=== PATIENT | male | born 1975 | race African-American/Black ===

== ENCOUNTER 2016-11-22 13:45 | Emergency (ER) | payer OTHER ==
[~2016-11-22] VITALS: Ht 188 cm; Wt 169.6 kg
[~2016-11-22 13:45] MED LIST: HYDROCODON-ACE1 EA11 PO; MEDROL4 M1 PO; NORCO 7.5-3251 EACH PO; PROVENTIL HFA6.7 GM INH
[2016-11-22] MEDS ORDERED: TYLENOL325 MG PO (14:38)
[2016-11-22] MEDS ORDERED: LAXATIVE SUPPOS10 MG PR (14:39)
[2016-11-22] MEDS ORDERED: LO-DOSE ASPIRIN81 MG PO (14:39)
[2016-11-22] MEDS ORDERED: CARDIZEM CD120 MG PO (14:40)
[2016-11-22] MEDS ORDERED: MULTIPLE VITAM1 EAC2 PO (14:41)
[2016-11-22] MEDS ORDERED: LOVENOX60 MG SUB-Q (14:42)
[2016-11-22] MEDS ORDERED: FLEET ENEMA133 ML PR (14:43)
[2016-11-22] MEDS ORDERED: MAGNESIUM CITR296 ML PO (14:44)
[2016-11-22] MEDS ORDERED: TOPROL XL100 MG PO (14:46)
[2016-11-22] MEDS ORDERED: MILK OF MA400 MG/5 M PO (14:47)
[2016-11-22] MEDS ORDERED: OXYCODONE HCL5 MG PO (14:48)
[2016-11-22] MEDS ORDERED: GAVILAX17 GM PO (14:52)
[2016-11-22] MEDS ORDERED: SENNA-S TABLET1 EACH PO (14:53)
[2016-11-22] MEDS ORDERED: ZOFRAN4 MG PO (14:54)
[2016-11-22] MEDS ORDERED: KEFLEX500 MG PO (16:16)
== END 2016-11-22 17:05 ==
LOC: ED 13:45
DX: T84.629A Infection and inflammatory reaction due to internal fixation device of unspecified bone of leg, initial encounter (principal); J45.909 Unspecified asthma, uncomplicated; I10 Essential (primary) hypertension; I48.91 Unspecified atrial fibrillation; Z79.82 Long term (current) use of aspirin; Z79.899 Other long term (current) drug therapy; Z79.891 Long term (current) use of opiate analgesic
CPT/HCPCS: 73560; 80053; 85025; 99283

== ENCOUNTER 2020-05-10 01:41 | Emergency (ER) | payer OTHER ==
[~2020-05-10] VITALS: Ht 188 cm; Wt 181.4 kg
[~2020-05-10 01:41] MED LIST changes: +ALBUTEROL2.5 MG/3 M INH; +CARDIZEM CD120 MG PO; +CHLORTHALIDONE50 MG PO; +DILTIAZEM 24HR240 M3 PO; +FLEET ENEMA133 ML PR; +GAVILAX17 GM PO; +KEFLEX500 MG PO; +LAXATIVE SUPPOS10 MG PR; +LO-DOSE ASPIRIN81 MG PO; +LOVENOX60 MG SUB-Q; +MAGNESIUM CITR296 ML PO; +MILK OF MA400 MG/5 M PO; +MULTIPLE VITAM1 EAC2 PO; +NORCO 5-325 TA1 EACH PO; +OXYCODONE HCL5 MG PO; +PREDNISONE20 MG PO; +PROAIR HFA8.5 GM INH; +SENNA-S TABLET1 EACH PO; +TOPROL XL100 MG PO; +TYLENOL325 MG PO; +ZESTRIL40 MG PO; +ZOFRAN4 MG PO
[2020-05-10] MEDS ORDERED: CLINDAMYCIN HC300 MG PO (02:17)
== END 2020-05-10 02:28 | disposition home or self-care (01) ==
LOC: ED 01:41
DX: K04.7 Periapical abscess without sinus (principal); J45.909 Unspecified asthma, uncomplicated; I48.91 Unspecified atrial fibrillation; Z79.899 Other long term (current) drug therapy
CPT/HCPCS: 99282

== ENCOUNTER 2023-03-01 22:02 | Emergency (ER) | payer OTHER ==
[~2023-03-01] VITALS: Ht 188 cm; Wt 181.4 kg
[~2023-03-01 22:02] MED LIST changes: +CLINDAMYCIN HC300 MG PO
[2023-03-01 22:47] LABS: BILIRUBIN, URINE NEGATIVE (negative); BLOOD/HGB, URINE NEGATIVE (Negative); KETONE, URINE NEGATIVE (Negative); LEUK ESTERASE, URINE NEGATIVE (negative); NITRITE, URINE NEGATIVE (negative); PH, URINE 5.5 (5-7)
[2023-03-01 23:16] LABS: BASOPHILS 0.5 % (0-2); EOSINOPHILS 4.6 % (0-6); HEMATOCRIT 43.8 % (35.0-50.0); LYMPHOCYTES 16.7 % (24-44); MCH 28.8 (27-36); MONOCYTES 7.8 % (0-12); NEUTROPHILS 70.4 % (39-80); PLATELET COUNT 224 K/uL (140-440); RBC 4.86 M/ul (4.3-5.7)
[2023-03-01 23:30] LABS: ALBUMIN 3.4 g/dL (3.4-5.0); ALBUMIN/GLOBULIN RATIO 0.89 (1.1-2.4); ANION GAP 10.3 (7-21); BILIRUBIN, TOTAL 0.4 ng/dL (0.2-1.0); BUN/CREATININE RATIO 13.44 (6.0-28.6); CALCIUM 8.1 mg/dL (8.5-10.1); CREATININE, SERUM 1.19 mg/dL (0.70-1.30); POTASSIUM 3.3 mmol/L (3.5-5.1); PROTEIN, TOTAL 7.2 g/dL (6.4-8.2)
[2023-03-02 02:31] VITALS: BP 114/82
== END 2023-03-02 02:30 | disposition home or self-care (01) ==
LOC: ED 22:02
PROVIDERS: Internal Medicine
DX: K42.9 Umbilical hernia without obstruction or gangrene (principal); Z79.899 Other long term (current) drug therapy
CPT/HCPCS: 36415; 74177; 80053; 81003; 85025; 96375; 99284-25; J1885; J7121; Q9967

== ENCOUNTER 2023-04-13 15:00 | Emergency (ER) | payer OTHER ==
[~2023-04-13] VITALS: Ht 188 cm; Wt 216.0 kg
[2023-04-13] MEDS ORDERED: TOBRADEX ST EYE5 ML OPTH (15:46)
[2023-04-13] MEDS ORDERED: NAPHCON-A EYE D15 ML OPTH (15:46)
[2023-04-13 15:56] VITALS: BP 145/96
== END 2023-04-13 15:55 | disposition home or self-care (01) ==
LOC: ED 15:00
DX: H10.9 Unspecified conjunctivitis (principal); H11.421 Conjunctival edema, right eye; J45.909 Unspecified asthma, uncomplicated; Z79.899 Other long term (current) drug therapy
CPT/HCPCS: 99283

== ENCOUNTER 2024-03-08 18:53 | Inpatient (IN) | payer OTHER ==
[~2024-03-08] VITALS: Ht 188 cm; Wt 222.8 kg
[~2024-03-08 18:53] MED LIST changes: +DILTIAZEM 24HR120 MG PO; +FUROSEMIDE40 MG; +K-TAB ER20 MEQ PO; +NAPHCON-A EYE D15 ML OPTH; +OMEPRAZOLE20 MG PO; +POTASSIUM CHLO10 MEQ PO; +TOBRADEX ST EYE5 ML OPTH; +TRAMADOL HCL50 MG
[2024-03-08] MEDS ORDERED: ALBUTEROL SULFATE 0.5% 2.5 MG/0.5 ML VIAL INH ONE (19:15)
[2024-03-08] MEDS ORDERED: ALBUTEROL/IPRATROPIUM 3 ML NEB INH ONE (19:15)
[2024-03-08] MEDS ORDERED: CLOPIDOGREL75 MG PO (19:19)
[2024-03-08] MEDS ORDERED: METOPROLOL SUC200 MG PO (19:20)
[2024-03-08 19:34] LABS: BASOPHILS 0.9 % (0-2); EOSINOPHILS 6.9 % (0-6); HEMATOCRIT 48.3 % (35.0-50.0); HEMOGLOBIN 15.4 g/dL (12.0-18.0); LYMPHOCYTES 20.5 % (24-44); MCH 29.2 (27-36); MCHC 31.9 g/dl (30-36); MCV 91.5 fl (81-99); MONOCYTES 9.4 % (0-12); NEUTROPHILS 62.3 % (39-80); PLATELET COUNT 245 K/uL (140-440); RBC 5.27 M/ul (4.3-5.7)
[2024-03-08 19:45] LABS: ALBUMIN 3.8 g/dL (3.4-5.0); ALBUMIN/GLOBULIN RATIO 0.88 (1.1-2.4); ANION GAP 12.5 (7-21); BILIRUBIN, TOTAL 0.5 ng/dL (0.2-1.0); BUN/CREATININE RATIO 11.11 (6.0-28.6); CALCIUM 8.6 mg/dL (8.5-10.1); CREATININE, SERUM 1.35 mg/dL (0.70-1.30); MAGNESIUM 1.8 mg/dL (1.8-2.4); POTASSIUM 3.5 mmol/L (3.5-5.1); PROTEIN, TOTAL 8.1 g/dL (6.4-8.2)
[2024-03-08] MEDS ORDERED: CALCIUM GLUCONATE 1,000 MG/10 ML VIAL IV ONE (20:00)
[2024-03-08] MEDS ORDERED: dilTIAZem HCL 25 MG/5 ML VIAL IV ONE ×2 (20:00→21:00)
[2024-03-08 20:10] LABS: BASE EXCESS, BLOOD GAS -1.5 mmol/L (-2-2); HCO3, BLOOD GAS 23.5 mmol/L (22-26); O2 SATURATION, BLOOD GAS 95.4 % (95.0-100.0); OXYGEN RECEIVED, BLOOD GAS 4L; PCO2, BLOOD GAS 39.5 mmHg (35-45); PH, BLOOD GAS 7.38 (7.35-7.45); PO2, BLOOD GAS 72 mmHg (80-100); TOTAL CO2, BLOOD GAS 24.7
[2024-03-08] MEDS ORDERED: FUROSEMIDE 100 MG/10 ML VIAL IV ONE (20:15)
[2024-03-08] MEDS ORDERED: NOREPINEPHRINE BITARTRATE 250 ML IV SCH (20:15)
[2024-03-08] MEDS ORDERED: LORazepam 2 MG/ML VIAL IV ONE (20:30)
[2024-03-08] MEDS ORDERED: APIXABAN 5 MG TAB PO ONE (21:00)
[2024-03-08] MEDS ORDERED: MELATONIN 3 MG TAB PO PRN (21:00)
[2024-03-08 21:38] LABS: INFLUENZA B NAA NEGATIVE (NEGATIVE); RESPIRATORY SYNCYTIAL VIR NAA NEGATIVE (NEGATIVE)
[2024-03-08] MEDS ORDERED: ondansetron HCL 4 MG/2 ML VIAL IV PRN (22:00)
[2024-03-08] MEDS ORDERED: ACETAMINOPHEN 325 MG TAB PO PRN (22:00)
[2024-03-08] MEDS ORDERED: ALBUTEROL SULFATE 0.042% 1.25 MG/3 ML VIAL INH PRN (22:30)
[2024-03-08] MEDS ORDERED: MAGNESIUM SULFATE 2 GM/50 ML BAG IV ONE (22:45)
[2024-03-08] MEDS ORDERED: LORazepam 2 MG/ML VIAL IV PRN (22:45)
[2024-03-08 22:48] VITALS: BP 134/90
[2024-03-08 22:50] VITALS: BP 134/90
--- NOTE | 2024-03-08 22:52 | NUR ---
REPORT RECEIVED FROM ED RN RAJIV. PATIENT TO ROOM 127 VIA [facility] [employer]. ASSISTED TO STAND AND PIVOT TO BED. PATIENT IS TACHYPNEAIC AND TACHYCARDIC,RR40, HR 95-100S IN AFIB. PATIENT COMPLAINS OF FEELING DIFFICULTY BREATHING. ATIVAN GIVEN PER ORDER. PATIENT PLACED ON BIPAP PER RT; /, RATE 12, FIO2 21%. ORIENTED TO ROOM, NURSING STAFF AND CALL LIGHT FUNCTIONS.
--- NOTE | 2024-03-08 22:52 | NUR ---
CALLED ON PATIENT ARRIVAL TO CCU DUE TO SEVERE ANXIETY, NEW ORDER FOR ATIVAN PRN AND 2G MG.
[2024-03-08 23:00] VITALS: BP 128/87
[2024-03-08] MEDS ORDERED: ALBUTEROL SULFATE 0.5% 2.5 MG/0.5 ML VIAL INH PRN (23:00)
[2024-03-08] MEDS ORDERED: ALBUTEROL/IPRATROPIUM 3 ML NEB INH PRN (23:00)
[2024-03-08 23:15] VITALS: BP 123/85
[2024-03-08 23:30] VITALS: BP 110/78
[2024-03-08] MEDS ORDERED: hydrOXYzine pamoate 50 MG CAP PO PRN (23:30)
[2024-03-08] MEDS ORDERED: GUAIFENESIN 10 ML UNIT DOSE CUP PO PRN (23:30)
[2024-03-08] MEDS ORDERED: methylPREDNISolone SOD SUCC 125 MG/2 ML VIAL IV SCH (23:30)
[2024-03-08] MEDS ORDERED: dilTIAZem HCL 120 MG CAPCR PO SCH (23:30)
[2024-03-08 23:45] VITALS: BP 122/89
--- NOTE | 2024-03-08 23:46 | NUR ---
PATIENT REPORTS NEED TO VOID. REMINDED PATIENT HE HAS EXTERNAL MALE PUREWICK ON. PATIENT VOIDED 700ML CLEAR LIGHT YELLOW URINE. REMAINS ON BIPAP AT THIS TIME.
--- NOTE | 2024-03-08 23:54 | NUR ---
CARDIZEM PO AND IV SOLUMEDROL GIVEN. PATIENT OFF BIPAP BRIEFLY FOR PO MEDICATION. WOB AND RR INCREASED WHILE OFF BIPAP AND ON 4L NC. RE-INFORCED EDUCATION ON BIPAP AND PT BACK ON, TOLERATING WELL. PATIENT DECLINES CALLING ANY FAMILY TO NOTIFY AT THIS TIME, REPORTS THEY ALL KNOW. CALL LIGHT IN REACH.
[2024-03-09] VITALS (52 sets, daily range): BP systolic 83–169; BP diastolic 41–110
--- NOTE | 2024-03-09 01:31 | NUR ---
PATIENT REQUESTS BREAK FROM MASK. REPORTS HIS MOUTH GETTING DRIED OUT. REMOVED BIPAP TO GIVE PO VISTERIL AND SIPS OF WATER. IV ATIVAN GIVEN PER EMAR FOR ANXIETY. PATIENT ENDORSES USING CPAP AT HOME AND SEEING HIS [facility]UL[facility]OLIGIST [place]ST W[place] WHERE THE DOCTOR TOLD HIM "EVERYTHING LOOKED GOOD". BIPAP REPLACED. PATIENT DENIES OTHER NEEDS OR CONCERNS AT THIS TIME.
[2024-03-09] MEDS ORDERED: METOPROLOL SUCCINATE 100 MG TABCR PO ONE (03:00)
[2024-03-09] MEDS ORDERED: DILTIAZEM HCl/D5W 125 ML IV SCH (03:00)
[2024-03-09 03:13] LABS: PH, VENOUS 7.296 (7.31-7.41)
--- NOTE | 2024-03-09 03:18 | NUR ---
APPROXIMATELY 0230 PATIENT C/O OF CHEST PAIN. EKG ORDERED AND RT NOTIFIED. PATIENT REPORTED IT "TIGHT PRESSURE" IN THE CENTER OF HIS CHEST, NON RADIATING. RT ADMINISTERED BREATHING TREATMENT AND PAIN RESOLVED. LUNG SOUNDS TIGHT AND WHEEZING HEARD THROUGHTOUT. DR. MADISON NOTIFIED. ORDERS RECEIVED FOR DILTIAZEM GTT TO TITRATE, VBG, TROPONIN AND BNP. DILT GTT INITIATED, SEE VS AND TITRATION FLOW SHEET.
--- NOTE | 2024-03-09 03:24 | NUR ---
PATIENT BACK ON BIPAP.
--- NOTE | 2024-03-09 03:37 | NUR ---
PROVIDER REQUESTED TO COME TO BEDSIDE.
--- NOTE | 2024-03-09 03:38 | NUR ---
DR CALVILLO AT BEDSIDE. 03:42 DR. MADISON AT BEDSIDE
[2024-03-09] MEDS ORDERED: propofoL 100 ML IV ONE (03:59)
[2024-03-09] MEDS ORDERED: ETOMIDATE 40 MG/20 ML VIAL IV ONE (04:30)
[2024-03-09] MEDS ORDERED: ROCURONIUM BROMIDE 50 MG/5 ML SYR IV ONE (04:30)
[2024-03-09] MEDS ORDERED: propofoL 100 ML IV SCH (04:30)
--- NOTE | 2024-03-09 04:55 | NUR ---
REVIEWED CT WITH DR. MADISON, ORDER CLARIFIED FOR CTA AND CHANGED TO CORRECT ORDER. ORDER RECEIVED FOR D DIMER. UPDATED ON PATIENT STATUS, HR,BP AND SEDATION REQUIREMENTS AND INSTABILITY TO TRANSPORT TO CT AT THIS TIME. PER DR. MADISON, OK TO DO CT LATER IN THE AM WHEN THE PATIENT IS MORE STABLE. REVIEWED SEDATION AND ORDER RECEIVED FOR VERSED GTT.
--- NOTE | 2024-03-09 05:07 | NUR ---
PATIENT HAS REQUESTED EX- GIRLFRIEND BE CALLED. ATTEMPTED TO REACH AT TIME OF INTUBATION BUT NO ANSWER. THIS ATTEMPT GITA ANSWERED ([phone]). UPDATED ON STATUS AND ANSWERED QUESTIONS. GITA REPORTS PATIENT RECENTLY MOVED IN WITH HER DUE TO HIS HEALTH.
[2024-03-09] MEDS ORDERED: MIDAZOLAM HCL 100 MG in DEXTROSE 5% 80 ML IV SCH (05:15)
[2024-03-09 05:29] LABS: BASOPHILS 0.1 % (0-2); EOSINOPHILS 0.1 % (0-6); MCHC 31.8 g/dl (30-36); MONOCYTES 0.9 % (0-12); NEUTROPHILS 94.9 % (39-80); PLATELET COUNT 246 K/uL (140-440); RBC 5.16 M/ul (4.3-5.7); RDW 15.6 (10.5-15.0)
[2024-03-09 05:55] LABS: ALBUMIN 3.7 g/dL (3.4-5.0); ALBUMIN/GLOBULIN RATIO 0.82 (1.1-2.4); ANION GAP 19.8 (7-21); BILIRUBIN, TOTAL 0.9 ng/dL (0.2-1.0); BUN/CREATININE RATIO 9.65 (6.0-28.6); CALCIUM 8.6 mg/dL (8.5-10.1); CREATININE, SERUM 1.45 mg/dL (0.70-1.30); MAGNESIUM 1.9 mg/dL (1.8-2.4); POTASSIUM 3.8 mmol/L (3.5-5.1); PROTEIN, TOTAL 8.2 g/dL (6.4-8.2)
--- NOTE | 2024-03-09 06:59 | NUR ---
PATIENT'S EX-GIRLFRIEND IN ROOM. UPDATED ON PATIENT.
[2024-03-09] MEDS ORDERED: SODIUM CHLORIDE 0.9% 1,000 ML IV ONE (07:00)
--- NOTE | 2024-03-09 07:30 | NUR ---
ASSUMED CARE FROM EZRA SALAS, IV LINES AND PUMPS CHECKED WITH 2 RNS, R AND L IV ARM SITES WNL. R IJ WNL. GIBBS DRAINING YELLOW URINE, PT SEDATED SAFELY AND COMFORTABLY WITH FRIEND AT BEDSIDE. NS @100. VENT PER [place] RT, PEEP 15, VT 650, FIO2 60%, ORAL CARE DONE BY THIS RN, SIZE 8 TUBE, 24 AT TEETH. ORAL AREA WNL.
[2024-03-09] MEDS ORDERED: ALBUTEROL/IPRATROPIUM 3 ML NEB INH SCH (08:00)
--- NOTE | 2024-03-09 08:00 | NUR ---
0800 03/09/24 COMMENCE BLOCK CHARTING D/T PT REQUIRING INTUBATION: 03:35 DRS. CALVILLO AND LOS AT BEDSIDE TO DISCUSS INTUBATION WITH PATIENT. PATIENT AGREEABLE TO INTUBATION. WISHES TO HAVE HIS EX-GIRLFRIEND NOTIFIED. ATTEMPED TO REACH GITA BUT NO ANSWER. JOHNNY RT IN ROOM ALONG WITH SALES COMMISSIONS ANALYST CHACHO HASSAN, RN AND DANILO RN WELL SUPERINTENDENT STORAGE AREA. PATIENT PREPARED FOR INTUBATION 04:00 ETOMIDATE 40MG IVP; ROCURONIUM 200MG IVP ADMINISTERED. INTUBATED BY DR. CALVILLO; ET TUBE 8.0, 25 CM AT THE LIP; CO2 DETECTION NOTED. 04:[address] CALVILLO; PROPOFOL STARTED 17.6 MCG/KG/MIN; ET TUBE MOVED TO 28 AT THE LIP 04:12 25MG IVP DILTIAZEM GIVEN PER DR. CALVILLO'S ORDER 04:15 HR 127, BP 169/99 (120), RR 22, ETCO2 45, SPO2 94% 04:20 PROPOFOL INCREASED TO 20 MCG/KG/MIN 04:25 ET TUBE MOVED TO 24 AT THE LIP 04:27 PROPOFOL INCREASED TO 25 MCG/KG/MIN; DILTIAZEM GTT AT 15MG/HR 04:30 HR 144, BP 169/87 (111), RR 22, ETCO2 40, SPO2 96% 04:34 PCXR 04:38 25 MG IVP DILTIAZEM PER DR. CALVILLO'S ORDER GIBBS CATHETER PLACED WITH IMMEDIATE RETURN OF CLEAR YELLOW URINE. VENT SETTINGS: FIO2 60%, VT 650, RR 18, PEEP15 05:25 VERSED GTT INITIATED AT 4MG/HR; PROPOFOL AT 35 MCG/KG/MIN PATIENT REMAINS IN AFIB ON TELEMETRY. DILTIAZEM TITRATION CONTINUES WITH LAST TITRATION BY THIS RN AT 07:07 WITH A RATE OF 2MG/HR 07:00 BP 95/52 (65), HR 101, RR 18, ETCO2 31, SPO2 97% PROPOFOL AND VERSED TITRATION CONTINUED DURING THIS TIME WITH FINAL TITRATION BY THIS RN AT 06:18; PROPOFOL AT 40 MCG/KG/MIN, VERSED AT 10 MG/HR. 07:30 SHIFT REPORT GIVEN. SEE VITAL SIGN PRINT OUT IN CHART. END BLOCK CHARTING
[2024-03-09] MEDS ORDERED: levoFLOXacin 500 MG/100 ML BAG IV SCH (09:00)
[2024-03-09] MEDS ORDERED: CEFTRIAXONE/SODIUM CHLORIDE 2 GM/100 ML PIGGYBACK IV SCH (09:00)
[2024-03-09] MEDS ORDERED: ENOXAPARIN SODIUM 40 MG/0.4 ML SYR SUB-Q SCH (09:00)
--- NOTE | 2024-03-09 09:05 | NUR ---
NO CHANGE WITH PT, FAMILY, BROTHER IN ROOM, IN TO DISCUSS PLAN. ORAL CARE AND SUCTION OF STICKY SPUTUM THAT PT COUGHED UP. RT ASSIST.
--- NOTE | 2024-03-09 09:10 | NUR ---
CLARIFIED RASS GOAL WITH DR. MADISON. ORDER RECEIVED FOR RASS GOAL -2. JOSUE NOLAND UPDATED
[2024-03-09] MEDS ORDERED: FUROSEMIDE 20 MG/2 ML VIAL IV ONE (09:15)
[2024-03-09 09:26] LABS: PH, VENOUS 7.334 (7.31-7.41)
--- NOTE | 2024-03-09 09:38 | NUR ---
FAMILY IN ROOM, PRESS HAND IN FOR TEST AT BEDSIDE AND THEN PLAN TO MOVE PT TO CT STRECHER, CT, AND THEN TO BARIATRIC BED.
--- NOTE | 2024-03-09 09:39 | NUR ---
PT NOT RESPONSIVE. TALKED WITH FAMILY IN ROOM. FAMILY EXPRESSED SITUATIONALLY APPROPRIATE RESPONSES, DENIED IMMEDIATE NEEDS. COAL SCREENER PROVIDED SUPPORTIVE PRESENCE, HOSPITALITY, PRAYER. FAMILY EXPRESSED APPRECIATION.
--- NOTE | 2024-03-09 09:57 | NUR ---
DECREASED O2 TO 40%.
[2024-03-09] MEDS ORDERED: Perflutren Lipid Microspheres 2.2 MG/2 ML VIAL IV ONE (10:13)
--- NOTE | 2024-03-09 10:32 | NUR ---
PT MOVED VIA BED TO CT SCAN, HOVER MAT TRANSF. MAX ASSIST TO CT TABLE FOR SCAN. THEN BACK TO NEW BARIATRIC BED. PT TOLLERATED WELL AND RETURNED TO ROOM 127. FAMILY AT SIDE, ORAL CARE DONE, REPOSOITIONED, NEW LINEN, REAGAN CARE AND CALL LIGHT IN REACH. ALL IV SITES AND LINES CHECKED BY 2 RN AND WNL.
--- NOTE | 2024-03-09 11:09 | NUR ---
TRANSPORT TO AND FROM CT WITHOUT INCIDENT.
--- NOTE | 2024-03-09 11:29 | NUR ---
RUST COLORED MUCUS AND SALIVA SUCTIONED FROM PT ORAL AIRWAY AND ET TUBE TO SUCTION CANISTER. 200 ML NOTED DURING TURNING, AND TRANSITION TO CT TABLE AND BACK. GIBBS EMPTIED ALSO FOR 150 ML YELLOW URINE. RESTRAINTS REMOVED AND RETURNED. ROM WITH ARMS AND LEGS.
[2024-03-09] MEDS ORDERED: PHARMACY RENAL DOSE ADJUSTMENT 1 DOSE MISC PO SCH (12:00)
--- NOTE | 2024-03-09 12:30 | NUR ---
Spoke with pts brother. He was able to answer a few questions, but asks I speak with Hortencia. Hortencia is the mother of pts children.
--- NOTE | 2024-03-09 13:21 | NUR ---
UR CLINICAL REVIEW: [facility] FOR ASTHMA [facility] INPT 03/08/24 @ 2158, CHANGED TO CCU STATUS FROM [facility] 03/09/24 @ 0558 ORDER MATCHES REG AUTH PENDING, CLINICALS WILL BE FAXED VIA [facility] TODAY. DC PLAN PENDING, LIKELY HOME WHEN STABLE. 03/11/24
--- NOTE | 2024-03-09 13:36 | NUR ---
removed restraints and repositioned pt to left side, oral care done, and suction.
--- NOTE | 2024-03-09 14:41 | EKG ---
[facility] [address] [place], [place] [address] Signed Atrial fibrillation with rapid ventricular response Nonspecific ST and T wave abnormality Abnormal ECG When compared with ECG of 08-MAR-2024 19:12, (Unconfirmed) Nonspecific T wave abnormality has replaced inverted T waves in Anterior leads Confirmed by Dorcas Madison MD ([id number]) on 03/09/2024 2:41:17 PM Electronically Signed By: DORCAS MADISON DO 03/09/24 1441 PATIENT NAME: ANA JERNIGAN Electrocardiogram DATE OF : 75 PHYSICIAN: DORCAS MADISON DO REPORT #: [id number] REPORT IS CONFIDENTIAL AND NOT TO BE RELEASED WITHOUT AUTHORIZATION
--- NOTE | 2024-03-09 14:41 | EKG ---
[facility] [address] [facility] [address] [facility] [place], [place] [address] Signed Atrial fibrillation with rapid ventricular response Nonspecific ST and T wave abnormality Abnormal ECG No previous ECGs available Confirmed by Dorcas Madison MD ([id number]) on 03/09/2024 2:41:01 PM Electronically Signed By: DORCAS MADISON DO 03/09/24 1441 PATIENT NAME: ANA JERNIGAN Electrocardiogram DATE OF : 75 PHYSICIAN: DORCAS MADISON DO REPORT #: [id number] REPORT IS CONFIDENTIAL AND NOT TO BE RELEASED WITHOUT AUTHORIZATION
--- NOTE | 2024-03-09 15:30 | NUR ---
I was able to reach Hortencia. She works for the [employer] and has been in education. They live in a house with a ramp. Pt does not use DME, he does have CPAP she thinks is from [facility]. He also has a knee brace from a surgery 2 years ago. Pt has a history of resp failure. Pt moved in with Hortencia recently as he needed help. 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 Pt is also in need of a pcp. Hortencia would like [facility] as this is where she and the children go. They had also discussed POA. I will leave an Advance Directive in pts room, a copy of the mobile notary, and gave her infor to get a POA form. Will fu with pt when able to speak. Hortencia denies issues with financial problems. They would like to have susy Lowe as this is who the rest of the family uses. She denies other needs at this time. I called [facility] and they will check with Susy from [facility] if she can establish care with this pt. They will call me tomorrow.
--- NOTE | 2024-03-09 15:45 | NUR ---
ONE TIME ORDER FOR NS COMPLETE - IV SL WNL. FAMILY IN ROOM, GIBBS DRAINING YELLOW URINE.
--- NOTE | 2024-03-09 16:09 | NUR ---
rt at bedside with pt for treatment, family in room. pt appears comfortable.
--- NOTE | 2024-03-09 17:02 | NUR ---
pt hr increasing - 2 rn check increase dilt drip to 4 see medication flow sheet. turned pt to right using turn function on trace bed, pt appears comfortable,
--- NOTE | 2024-03-09 17:05 | NUR ---
call to dr mccarthy with updates on dilt increase, hr 125-128 and bp 128/70. no changes but doctor is aware.
[2024-03-09] MEDS ORDERED: MAGNESIUM SULFATE 2 GM/50 ML BAG IV ONE (18:45)
--- NOTE | 2024-03-09 18:53 | NUR ---
empty walker - 550 ml urine, turned pt using arjo bed - tolerated well, family at bedside, oral care done, pt restraints removed and replaced. hr 120's.
--- NOTE | 2024-03-09 19:45 | NUR ---
HANDOFF REPORT RECEIVED FROM JOSUE NOLAND. PT FAMILY AT BEDSIDE. NO NEEDS AT THIS TIME. PT VITAL SIGNS STABLE.
--- NOTE | 2024-03-09 20:15 | NUR ---
PT ASSESSMENT COMPLETE. PT REMAINS ON PROPOFOL AT 38 MCG/KG/MIN, VERSED AT 10 MG/HR, AND DILTIAZEM AT 6 MG/HR. PT ET TUBE 24CM AT THE LIPS. PT RASS SCORE -2. MEDICAL ARM RESTRAINTS X2 IN PLACE. GIBBS CATH PATENT AND DRAINING. PT LOWER EXTREMITIES NOTED TO HAVE 2+ EDEMA. PT TACHYCARDIC, WITH HR AT 135. BLOOD PRESSURE 124/71. PT APPEARS TO BE COMFORTABLE AT THIS TIME. FAMILY AT BEDSIDE.
[2024-03-09] MEDS ORDERED: METOPROLOL TARTRATE 5 MG/5 ML VIAL IV PRN (20:30)
[2024-03-09] MEDS ORDERED: MORPHINE SULFATE 4 MG/ML VIAL IV PRN (20:30)
--- NOTE | 2024-03-09 20:40 | NUR ---
DR TORRES UPDATED ON PATIENT. NEW ORDERS RECEIVED PER EMAR.
--- NOTE | 2024-03-09 21:36 | NUR ---
PRN MORPHINE GIVEN FOR PATIENT COMFORT PER EMAR. PT REMAINS TACHYCARDIC.
[2024-03-10] VITALS (36 sets, daily range): BP systolic 100–150; BP diastolic 45–96
--- NOTE | 2024-03-10 00:15 | NUR ---
ORAL CARE PROVIDED. PT REPOSITONED IN BED. MEDICAL RESTRAINTS RELEASED, ARMS ELEVEATED WITH PILLOWS. PT REMAINS INTUBATED AND SEDATED. ET TUBE 24CM AT THE GUMS. PROPOFOL AT 38 MCG/KG/MIN, VERSED AT 10 MG/HR, AND DILTIAZEM AT 15 MG/HR. MEDICAL RESTRAINTS REPLACED X2.
--- NOTE | 2024-03-10 00:45 | NUR ---
DR TORRES CALLED AND UPDATED ON PATIENT. PT HR 120-130'S. LAST BLOOD PRESSURE WAS 113/52. PT TEMP OF 101.4. NEW ORDERS RECEIVED FOR STAT BLOOD CULTURES, UA, LACTIC, AND CHEST X-RAY. IV OFIRMEV ORDER RECEIVED PER EMAR.
[2024-03-10] MEDS ORDERED: ACETAMINOPHEN 1,000 MG/100 ML VIAL IV ONE (01:00)
--- NOTE | 2024-03-10 02:04 | NUR ---
urine sample drawn off of walker, sent to lab.
[2024-03-10 02:07] LABS: BILIRUBIN, URINE NEGATIVE (negative); BLOOD/HGB, URINE NEGATIVE (Negative); KETONE, URINE NEGATIVE (Negative); LEUK ESTERASE, URINE NEGATIVE (negative); NITRITE, URINE NEGATIVE (negative)
[2024-03-10] MEDS ORDERED: ALBUTEROL SULFATE 0.083% 3 ML VIAL INH PRN (03:00)
--- NOTE | 2024-03-10 03:37 | NUR ---
START OF SHIFT PATIENT OG TUBE NOTED TO BE ON CONTINOUS HIGH PRESSURE, TURNED TO INTERMITTENT SUCTION. NO NEW DRAINAGE NOTED AT FIRST, BY 0100 IN THE MORNING NOTED 150 ML OF RUST COLORED DRAINAGE. DR TORRES NOTIFIED OF THIS WHILE NOTIFYING OF OTHER TEST RESULTS ORDERED DUE TO FEVER.
[2024-03-10] MEDS ORDERED: PANTOPRAZOLE SODIUM 40 MG/10 ML VIAL IV SCH (04:00)
--- NOTE | 2024-03-10 04:40 | NUR ---
PATIENT LABS DRAWN VIA CENTRAL LINE AND SENT TO LAB.
[2024-03-10 04:47] LABS: BASOPHILS 0.1 % (0-2); HEMATOCRIT 40.9 % (35.0-50.0); HEMOGLOBIN 13.2 g/dL (12.0-18.0); LYMPHOCYTES 14.5 % (24-44); MCHC 32.4 g/dl (30-36); MCV 89.5 fl (81-99); NEUTROPHILS 67.4 % (39-80); PLATELET COUNT 217 K/uL (140-440); RBC 4.57 M/ul (4.3-5.7); RDW 14.7 (10.5-15.0)
[2024-03-10 05:11] LABS: ANION GAP 12.7 (7-21); BUN/CREATININE RATIO 13.75 (6.0-28.6); CALCIUM 8.6 mg/dL (8.5-10.1); CREATININE, SERUM 1.6 mg/dL (0.70-1.30); POTASSIUM 3.7 mmol/L (3.5-5.1); TSH, 3RD GENERATION 0.348 uIU/mL (0.358-3.740)
--- NOTE | 2024-03-10 05:15 | NUR ---
patient provided with oral care and deep suctioned. pt repositioned and appears to be comfortable at this time.
[2024-03-10 05:31] LABS: PROCALCITONIN 0.03 ng/mL (())
--- NOTE | 2024-03-10 06:30 | NUR ---
PATIENT FAMILY MEMBER NARESH PROVIDED WITH UPDATE AND ALL QUESTIONS ANSWERED. PATIENT FAMILY REMAINS AT BEDSIDE.
--- NOTE | 2024-03-10 08:00 | NUR ---
REPORT RECEIVED FROM GAGE SALAS. VERSED DRIP TURNED OFF PER DR TORRES ORDER. PT HAS WRIST RESTRAINTS IN PLACE, PROPOFOL DRIP AT 38 MCG/KG/MIN. PT IS RESTING WITH EYES CLOSED, OCC COUGH NOTED. ETT IN PLACE VENT SETTINGS FIO2 21%, TIDAL VOLUME 700, PEEP 8, RR 18. SPO2 92%. PT IS BREATHING WITH VENT. PIP 34. AXILLARY TEMP IS 99.6. PTS CURRENT RASS -4.
--- NOTE | 2024-03-10 08:08 | NUR ---
RT IN TO SEE PT, START NEB TX, GO OVER PLAN FOR THE DAY, WILL ATTEMPT SAB AT 0900 AND HOPEFULLY EXTUBATE AT SOME POINT TODAY.
--- NOTE | 2024-03-10 08:59 | NUR ---
IN TO CHECK ON PT RASS SCORE, PT STILL DOES NOT OPEN EYES TO VOICE OR PHYICAL STIMULI. PROPOFOL DRIP TURNED DOWN TO 15MCG/KG/HR.
--- NOTE | 2024-03-10 09:10 | NUR ---
VISITED DURING SPIRITUAL CARE ROUNDS. PT NOT RESPONSIVE. FAMILY IN ROOM DENIED NEEDS, KAYLA, STRONG RELATIONAL RESOURCES. QA DEVELOPER PROVIDED SUPPORTIVE PRESENCE, HOSPITALITY, PRAYER. FAMILY EXPRESSED GRATITUDE.
--- NOTE | 2024-03-10 09:16 | NUR ---
PTS BROTHER ALECIA AND SISTER IN LAW IN TO VISIT WITH PT, WOULD LIKE TO BE CALLED PRIOR TO EXTUBATION IN POSSIBLE SO THEY CAN BE SAYING SOME PRAYERS.
--- NOTE | 2024-03-10 10:30 | NUR ---
RT HAS BEEN ATTEMPTING AN AWAKENING/BREATHING TRIAL. ALL SEDATION HAS BEEN TURNED OFF TO ASSESS PT, PT CONT TO BE A RASS OF -4 WITH VERY MINIMAL MOVEMENTS ON HIS OWN, OCC COUGH NOTED AND EVENTUALLY PT DID START TO MAKE SOME MINOR MOVEMENTS SUCH GRIMACING HIS FACE BRIEFLY. RT OVER TO DISCUSS PLAN WITH MD PT IS NOT PASSING HIS BREATHING TRIAL. ON HIS OWN PTS RR IS 40 WITH TIDAL VOLUMES 250-300. PLAN IS TO NOW WAIT UNTIL TOMORROW TO REEVALUATE. HR HAS INCREASED UP TO 120'S CONT TO BE IN AFIB, CARDIZEM DRIP HAS BEEN TITRATED UP TO 15MG/HR. AFTER RT DONE WITH TRIALS VENT WAS LEFT AT VC/AC MODE, RR 18, FIO2 30%, TV 700 AND PEEP 15. WILL START PT ON FENTANYL DRIP PT IS LOOKING A LITTLE UNCOMFORTABLE WITH FACE TENSE AND OCC GRIMACING. WRIST RESTRAINTS REMAIN IN PLACE.
[2024-03-10] MEDS ORDERED: FENTANYL CITRATE-0.9 % NACL/PF 100 ML IV SCH (11:00)
--- NOTE | 2024-03-10 11:02 | NUR ---
ET TUBE ADVANCED TO 27 AT TEETH AND CUFF PRESSURE AT 22. ORAL SUCTION AND ET TUBE SUCTION DONE. BITE BLOCK REPOSITIONED.
--- NOTE | 2024-03-10 13:15 | NUR ---
In and spoke with pts RN. FAmily are out of room. Per RN pt remains on the vent.
--- NOTE | 2024-03-10 13:35 | NUR ---
REPORT REC'D FROM JOSUE MOSER AND PATIENT CARE RESUMED BY THIS RN. PT RESTING ON VENT WITH CURRENT SETTINGS OF VT 700, FI02 21%, PEEP 16, VC/AC 18. CURRENTLY, SP02 IS 93%, RR IS 18 AND PATIENT BREATHING WITH VENT WELL, ETC02 IS 27 AND PIP IS 37. PT REMAINS IN AFIB, ON DILT GTT AT 15 MG/HR. FENTANYL GOING AT 12.5 MCG/HR WHICH IS 1.3 ML/HR. BOTH IV SITES PERIPHERALLY FLUSHING WELL. MEDS GOING THROUGH RIGHT IJ. PT IS A RASS OF -3 CURRENTLY, AND WAS ABLE TO NOD HEAD YES/NO. PT DID ENDORSE PAIN WHEN ASKED, AND ABLE TO NOD HEAD WHEN ASKED IF THIS PAIN IS IN HIS CHEST RELATED TO HIS BREATHING. PT NODS HEAD "NO" WHEN ASKED IF HE IS PAINFUL ANYWHERE ELSE. PT ON ALISSON BED. U/O FOR THE LAST HOUR WAS 60 ML. WILL INFORM MD OF CURRENT TEMP OF 101.1 AXILLARY. PRN TYLENOL TO BE GIVEN.
[2024-03-10] MEDS ORDERED: ACETAMINOPHEN 650 MG SUPP PR PRN (13:45)
[2024-03-10] MEDS ORDERED: VANCOMYCIN PER PHARMACY PROTOCOL IV SCH (14:10)
--- NOTE | 2024-03-10 14:15 | NUR ---
BED BATH GIVEN AND LINENS CHANGED. WHEN PATIENT WAS TURNED, 4 PERSON ASSIST WAS UTILIZED WITH RT AND RNs. PT TOLERATED ALL OFTHIS WELL. CHG BATH GIVEN. PT REMAINS ON DILT AT 15 MG/HR AND FENTANYL AT 12.5 MCG/HR. PT STILL COMMUNICATING MINIMALLY WITH NODS OF YES/NO WHEN ASKED QUESTIONS. PT THEN TURNED TO RIGHT SIDE AND POSITIONED WITH PILLOWS. BLUE AIR LIFT SHEET KEPT UNDER PATIENT FOR EASE OF TURNING.
[2024-03-10] MEDS ORDERED: VANCOMYCIN HCL 3,000 MG in DEXTROSE 5% 500 ML IV ONE (15:30)
--- NOTE | 2024-03-10 16:35 | NUR ---
PATIENT TURNED TO LEFT SIDE WITH 3 PERSON ASSIST. OG TUBE RESECURED AND MARKED WITH BLACK LINE. DILT AT 15 MG/HR REMAINS. IV VANCO NOW INFUSING. PT STILL ABLE TO NOD HEAD YES WHEN TALKING TO HIM, AND SEEMS TO UNDERSTAND PLAN OF CARE WHEN THIS IS BEING DISCUSSED. RASS IS STILL -3. WILL CONTINUE TO MONITOR.
[2024-03-10] MEDS ORDERED: SODIUM CHLORIDE 0.9% 1,000 ML IV SCH (17:30)
--- NOTE | 2024-03-10 17:30 | NUR ---
PATIENT'S FAMILY, HIS BROTHER AND SISTER IN LAW, IN ROOM TO SEE PATIENT. DR. TORRES IN UNIT WELL, AND GIVES UPDATE TO FAMILY REGARDING HOW PATIENT IS DOING. PLAN OF CARE DISCUSSED. QUESTIONS ANSWERED BEST POSSIBLE.
--- NOTE | 2024-03-10 18:22 | NUR ---
PATIENT'S FAMILY REMAINS IN ROOM AND ATTENTIVE TO PATIENT. PT IS CALM, REMAINS ON SAME AMOUNT OF FENTANYL AT THIS TIME. PLAN WILL REMAIN THE SAME, WORK TOWARDS EXTUBATION TOMORROW AM. IVF TO BE STARTED AT 125 ML/HR ONCE VANCO HAS COMPLETED. WILL CONTINUE TO MONITOR.
--- NOTE | 2024-03-10 18:56 | NUR ---
PATIENT REPOSITIONED TO RIGHT SIDE USING AIR LIFT SHEET. PT TOLERATED WELL. LEGS AND ARMS POSITIONED WITH PILLOWS. HOB IS ABOUT 40 DEGREES. PT PULLING AT HIS GOWN ON LEFT HAND SIDE AND NODS HEAD YES WHEN ASKING IF HE IS HOT. PERSONAL FAN GIVEN TO PATIENT. IVF TO BE STARTED.
--- NOTE | 2024-03-10 19:45 | NUR ---
handoff report received from JOSUE Garcia. pt family at bedside.
--- NOTE | 2024-03-10 19:55 | NUR ---
pt currently on Fentanyl drip at 12.5 mcg/hr, Vancomycin infusion completed, Cardizem drip at 15 mg/hr. pt appears to be restless, biting at ET tube, pulling at gown, moving head and legs around. pt family members states she thinks he is uncomfortable. RASS at +1. RT in room, advances ET tube to 27cm at the gums. pt remains on the ventilator with settings; FIO2 21%, PEEP 15, TV 650, RR 14. pt central line WNL, peripheral sites x2 WNL and saline locked. pt walker cath patent and draining. pt noted to be tachycardic, bp stable. temp taken; 99.0. family remains at bedside.
--- NOTE | 2024-03-10 20:35 | NUR ---
DR TORRES CALLED AND UPDATED ON PATIENT STATUS.
--- NOTE | 2024-03-10 20:45 | NUR ---
PROPOFOL DRIP INITIATED PER MEDICATION FLOW SHEET
--- NOTE | 2024-03-10 22:30 | NUR ---
PT REPOSTIONED AND BOOSTED IN BED. PT EXTREMITIES ELEVATED WITH PILLOWS. GIBBS CARE PROVIDED. PT FAMILY PROVIDED WITH PILLOW AND BLANKET. ORAL CARE AND DEEP SUCTIONING PROVIDED. FAMILY EDUCATED SHIRT MARKER LIGHT AND PLACED AT BED SIDE.
--- NOTE | 2024-03-10 23:50 | NUR ---
RESPIRATORY THERAPY IN ROOM. PT VENT SETTINGS CHANGED TO FIO2 24%, RR 14, VT 620, PEEP 10. PT TOLERATING VENT WELL.
[2024-03-11] VITALS (20 sets, daily range): BP systolic 93–141; BP diastolic 53–84
--- NOTE | 2024-03-11 01:00 | NUR ---
PT APPEARS TO BE COMFORTABLE. PROPOFOL AT 25 MCG/KG/MIN, DILTIAZEM 15 MG/HR, FENTANYL 50 MCG/HR. PT VENT SETTINGS; FIO2 24, VT 620, RR 14, PEEP 10. PT O2 SATURATION AT 93%. PT CONTINUES TO HAVE REDDISH/BROWN OG DRAINAGE. PT GIBBS CATH PATENT WITH ADEQUATE URINE OUTPUT. PT HAS NS RUNNING AT 125 ML/HR. PT FAMILY MEMBER NARESH REMAINS AT BEDSIDE.
--- NOTE | 2024-03-11 02:36 | NUR ---
PT APPEARS TO BE COMFORTABLE. PT VITAL SIGNS STABLE. FAMILY MEMBER NARESH REMAINS AT BEDSIDE. PT TEMPERATURE TAKEN 98.2.
--- NOTE | 2024-03-11 04:03 | NUR ---
Respiratory therapy in patient room. patient ET tube 27 at the teeth. patient vent settings changed; FIO2 21%, VT 560, RR 12, PEEP 8. patient SPO2 90%. patient deep suctioned and oral care provided. patient RASS -2. patient walker cath patent with adequate urine output. OG tube continues to have brown/reddish output. patient vital signs stable.
--- NOTE | 2024-03-11 05:10 | NUR ---
PATIENT MORNING LABS DRAWN OFF CENTRAL LINE AND SENT TO LAB
[2024-03-11 05:14] LABS: BASOPHILS 0.1 % (0-2); HEMATOCRIT 40.9 % (35.0-50.0); HEMOGLOBIN 13.2 g/dL (12.0-18.0); LYMPHOCYTES 4.1 % (24-44); MCHC 32.4 g/dl (30-36); MCV 89.5 fl (81-99); MONOCYTES 4.7 % (0-12); NEUTROPHILS 91.1 % (39-80); PLATELET COUNT 210 K/uL (140-440); RBC 4.57 M/ul (4.3-5.7); RDW 14.5 (10.5-15.0)
[2024-03-11 05:36] LABS: ALBUMIN/GLOBULIN RATIO 0.79 (1.1-2.4); ANION GAP 13.9 (7-21); BILIRUBIN, TOTAL 0.4 ng/dL (0.2-1.0); BUN/CREATININE RATIO 19.69 (6.0-28.6); CALCIUM 8.3 mg/dL (8.5-10.1); CREATININE, SERUM 1.32 mg/dL (0.70-1.30); MAGNESIUM 2.6 mg/dL (1.8-2.4); PHOSPHORUS, INORGANIC 3.4 mg/dL (2.5-4.9); POTASSIUM 3.9 mmol/L (3.5-5.1); PROTEIN, TOTAL 6.8 g/dL (6.4-8.2)
--- NOTE | 2024-03-11 06:20 | NUR ---
patient drip titrated per medication flowsheet. cardizem at 15 mg/hr, propofol at 15 mcg/kg/hr, fentanyl 25 mcg/hr. pt urine output adequate throughout the night. pt ET tube 27 at the teeth. pt vent settings; FIO2 21%, VT 560, RR 18, PEEP 8. patient O2 saturation at 93%. vital signs stable. patient family member alison remains at bedside.
--- NOTE | 2024-03-11 07:30 | NUR ---
REPORT RECEIVED. PATIENT IS ON VENT. HOB ELEVATED TO 30 DEGREES.
--- NOTE | 2024-03-11 08:00 | NUR ---
ASSESSMENT DONE. TALKED WITH RT ABOUT POC FOR FOR POSSIBLE EXTABATION TODAY. PLAN FOR WEANING TRIAL. ETT REMAINS IN PLACE, TAPED 27 AT TEETH. WILL BEGIN WEANING TRIAL SOON. HAS OCC HARSH COUGH. SUCTION PRN. SPUTUM IS WHITE. OGT TO LIS. SECRETIONS ARE BROWN IN COLOR. ABD IS SOFT. GIBBS CATH PATENT WITH CLEAR YELLOW URINE NOTED. SEE ASSESSMENT, AND FLOWSHEET FOR TITRATION OF MEDICATIONS.
--- NOTE | 2024-03-11 08:20 | NUR ---
RT HERE TO WORK WITH PATIENT ON WEANING. ALL SEDATION OFF AT THIS TIME.
--- NOTE | 2024-03-11 08:30 | NUR ---
PATIENT IS ABLE TO FOLLOW MOST COMMANDS. WILL SQUEEZE MY HAND AND WIGGLE TOES ON COMMAND. EXPLAINED TO PATIENT PLAN FOR HOPEFUL EXTABATION. WITH PATIENT ON WEANING MODE, RR-45-50 WITH INCREASE WORK OF BREATHING. HAS VERY HARSH CONTINUAL COUGH. REQUIRING FREQUENT SUCTIONING.
--- NOTE | 2024-03-11 08:50 | NUR ---
RT REMAINS IN ROOM. RT ASKED PATIENT IF HE FELT LIKE HE WOULD BE OK IF THE ETT WAS OUT, PATIENT INDICATED HE WOULDN'T BE OKAY. RR-45-50, CONTIUNES WITH FREQUENT COUGH. WHEN ASKED PATIENT IF HE WOULD BE AGREEABLE TO BE TRANSFERRED TO A HIGHER LEVEL OF CARE, HE INDICATED HE WOULD BE AGREEABLE BY WIGGLING TOES. SEVERAL STAFF IN ROOM TO WITNESS THIS. PATIENT EXWIFE REMAINS IN ROOM. PATIENT WAS ALSO ASKED IF HE WOULD LIKE HIS EXWIFE TO HELP MAKE DECISIONS, HE INDICATED YES BY NODING HEAD IN UP AND DOWN MOTION. SEVERAL PEOPLE IN ROOM TO WITNESS THIS ALSO,
--- NOTE | 2024-03-11 09:10 | NUR ---
NOW BACK ON FULL VENT SUPPORT. VC-AC-18, FIO2-40, PEEP-15, VT-560., ETCO2-30, PIP-38. PROPOFOL AT 20 MCG/KG/MIN, FENTANYL AT 25 MCG/HR, PLAN IS TO TRANSFER TO HIGHER LEVEL OF CARE.
--- NOTE | 2024-03-11 10:00 | NUR ---
NO CHANGES. AWAITING CONFIRMATION FOR NATHANIEL.
--- NOTE | 2024-03-11 10:55 | NUR ---
[facility] WILL TRANSFER PATIENT TO [facility]. PATIENT EX- AND BROTHER ARE AWARE OF TRANSFER. NS OFF. REMAINS ON CARDIZEM GTT AT 10 MG/HR, PROPOFOL GTT AT 20 MCG/KG/MIN. FENTANYL AT 25 MCG/HR. THESE IV MEDS ARE INFUSING TO RIJ. PATIENT IS CALM.
--- NOTE | 2024-03-11 11:30 | NUR ---
TRANSFER TEAM HERE, REPORT TO THEM.
--- NOTE | 2024-03-11 12:00 | NUR ---
TO [facility], [place], [facility].
--- NOTE | 2024-03-11 12:30 | NUR ---
REPORT TO [facility].
== END 2024-03-11 12:00 | disposition short-term general hospital (02) | DRG 208 ==
LOC: ED 18:53 → CCU 22:02
PROVIDERS: Family Medicine; ADMIT Student in an Organized Health Care Education/Training Program; ATTEND Student in an Organized Health Care Education/Training Program
PROC: 02HV33Z Insertion of Infusion Device into Superior Vena Cava, Percutaneous Approach (ICD-10-PCS; principal; 2024-03-08)
PROC: 5A1945Z Respiratory Ventilation, 24-96 Consecutive Hours (ICD-10-PCS; 2024-03-08)
PROC: 0BH17EZ Insertion of Endotracheal Airway into Trachea, Via Natural or Artificial Opening (ICD-10-PCS; 2024-03-08)
PROC: 4A033R1 Measurement of Arterial Saturation, Peripheral, Percutaneous Approach (ICD-10-PCS; 2024-03-08)
DX: J18.9 Pneumonia, unspecified organism (principal); J96.01 Acute respiratory failure with hypoxia; J45.901 Unspecified asthma with (acute) exacerbation; N17.9 Acute kidney failure, unspecified; Z68.43 Body mass index [BMI] 50.0-59.9, adult; I48.91 Unspecified atrial fibrillation; E66.01 Morbid (severe) obesity due to excess calories; Z99.81 Dependence on supplemental oxygen; Z79.899 Other long term (current) drug therapy; Z79.02 Long term (current) use of antithrombotics/antiplatelets; I50.9 Heart failure, unspecified
CPT/HCPCS: 31500; 36415; 36592; 36600; 71045; 71260; 80048; 80053; 81003; 82803; 83036; 83605; 83735; 83880; 84100; 84443; 84484; 85025; 85379; 87040; 87502; 93005; 93010; 93306; 94002; 94003; 94640; 94660; 94762; 96374; 96375; 99285-25; A9270; J0131; J0612; J0696; J1650; J1940; J1956; J2060; J2250; J2270; J2470; J2704; J2919; J3010; J3370; J3475; J3490; J7030; J7060; Q9957; Q9967; U0002

== ENCOUNTER 2024-04-09 12:15 | Emergency (ER) | payer OTHER ==
[~2024-04-09] VITALS: Ht 188 cm; Wt 207.9 kg
[~2024-04-09 12:15] MED LIST changes: +CLOPIDOGREL75 MG PO; +METOPROLOL SUC200 MG PO
[2024-04-09] MEDS ORDERED: METOPROLOL TARTRATE 50 MG TAB PO ONE (13:15)
[2024-04-09 13:30] LABS: BASOPHILS 0.6 % (0-2); EOSINOPHILS 2.8 % (0-6); HEMATOCRIT 40.3 % (35.0-50.0); LYMPHOCYTES 16.4 % (24-44); MCH 29.5 (27-36); MCHC 32.2 g/dl (30-36); MCV 91.6 fl (81-99); MONOCYTES 11.5 % (0-12); NEUTROPHILS 68.7 % (39-80); PLATELET COUNT 257 K/uL (140-440); RDW 15.3 (10.5-15.0)
[2024-04-09 13:39] LABS: ANION GAP 14.1 (7-21); BUN/CREATININE RATIO 9.85 (6.0-28.6); CALCIUM 8.3 mg/dL (8.5-10.1); CREATININE, SERUM 1.42 mg/dL (0.70-1.30); POTASSIUM 3.1 mmol/L (3.5-5.1)
[2024-04-09] MEDS ORDERED: HYDROCODON-ACE1 EA10 PO (14:31)
[2024-04-09] MEDS ORDERED: PLAVIX75 MG PO (14:31)
[2024-04-09] MEDS ORDERED: VENTOLIN HFA18 GM INH (14:31)
[2024-04-09] MEDS ORDERED: LOSARTAN POTASS50 MG PO (14:31)
[2024-04-09] MEDS ORDERED: FUROSEMIDE40 MG PO (14:31)
[2024-04-09] MEDS ORDERED: CHLORTHALIDONE25 MG PO (14:31)
[2024-04-09 14:45] VITALS: BP 141/95
--- NOTE | 2024-04-10 20:51 | EKG ---
[facility] [address] [place] [address] Signed Atrial fibrillation with rapid ventricular response Abnormal ECG When compared with ECG of 09-MAR-2024 02:26, Questionable change in QRS axis Nonspecific T wave abnormality no longer evident in Anterolateral leads Confirmed by Dorcas Madison MD ([id number]) on 04/10/2024 8:51:21 PM Electronically Signed By: DORCAS MADISON DO 04/10/242050 PATIENT NAME: ANA JERNIGAN Electrocardiogram DATE OF : 75 PHYSICIAN: DORCAS MADISON DO REPORT #: [id number] REPORT IS CONFIDENTIAL AND NOT TO BE RELEASED WITHOUT AUTHORIZATION
== END 2024-04-09 14:45 | disposition home or self-care (01) ==
LOC: ED 12:15
PROVIDERS: Emergency Medicine
DX: I82.811 Embolism and thrombosis of superficial veins of right lower extremity (principal); I10 Essential (primary) hypertension; J45.909 Unspecified asthma, uncomplicated; I48.91 Unspecified atrial fibrillation; Z79.899 Other long term (current) drug therapy
CPT/HCPCS: 36415; 80048; 85025; 93005; 93010; 93971; 99284-25

== ENCOUNTER 2024-08-23 13:43 | Emergency (ER) | payer OTHER ==
[~2024-08-23] VITALS: Ht 188 cm; Wt 208.0 kg
[~2024-08-23 13:43] MED LIST changes: +CHLORTHALIDONE25 MG PO; +FUROSEMIDE40 MG PO; +HYDROCODON-ACE1 EA10 PO; +LOSARTAN POTASS50 MG PO; +PLAVIX75 MG PO; +VENTOLIN HFA18 GM INH
[2024-08-23] MEDS ORDERED: ASPIRIN 81 MG CHEW PO ONE (15:00)
[2024-08-23] MEDS ORDERED: NITROGLYCERIN 0.4 MG SUBL SL PRN (15:00)
[2024-08-23 15:07] LABS: BASOPHILS 0.8 % (0-2); EOSINOPHILS 6.8 % (0-6); HEMATOCRIT 42.3 % (35.0-50.0); HEMOGLOBIN 13.9 g/dL (12.0-18.0); LYMPHOCYTES 16.7 % (24-44); MCH 28.8 (27-36); MCHC 32.9 g/dl (30-36); MCV 87.6 fl (81-99); MONOCYTES 10.3 % (0-12); NEUTROPHILS 65.4 % (39-80); PLATELET COUNT 217 K/uL (140-440); RBC 4.83 M/ul (4.3-5.7); RDW 14.2 (10.5-15.0)
[2024-08-23 15:37] LABS: ALBUMIN 3.5 g/dL (3.4-5.0); ALBUMIN/GLOBULIN RATIO 0.97 (1.1-2.4); ANION GAP 10.2 (7-21); BILIRUBIN, TOTAL 0.5 mg/dL (0.2-1.0); BUN/CREATININE RATIO 13.33 (6.0-28.6); CALCIUM 8.4 mg/dL (8.5-10.1); CREATININE, SERUM 1.5 mg/dL (0.70-1.30); MAGNESIUM 1.7 mg/dL (1.8-2.4); POTASSIUM 3.2 mmol/L (3.5-5.1); PROTEIN, TOTAL 7.1 g/dL (6.4-8.2)
[2024-08-23] MEDS ORDERED: dilTIAZem HCL 25 MG/5 ML VIAL IV ONE (17:00)
[2024-08-23] MEDS ORDERED: DILTIAZEM 24HR360 MG PO (17:34)
[2024-08-23 18:20] VITALS: BP 123/80
--- NOTE | 2024-08-24 10:38 | EKG ---
[facility] [address] [facility] [place] [address] Signed Atrial fibrillation with rapid ventricular response Low voltage QRS Nonspecific ST and T wave abnormality Abnormal ECG When compared with ECG of 09-APR-2024 14:21, ST now depressed in Lateral leads Confirmed by Dorcas Madison DO ([id number]) on 08/24/2024 10:38:15 AM Electronically Signed By: DORCAS MADISON DO 08/24/24 1038 PATIENT NAME: ANA JERNIGAN Electrocardiogram DATE OF : 75 PHYSICIAN: DORCAS MADISON DO REPORT #: [id number] REPORT IS CONFIDENTIAL AND NOT TO BE RELEASED WITHOUT AUTHORIZATION
== END 2024-08-23 18:20 | disposition home or self-care (01) ==
LOC: ED 13:43
PROVIDERS: Emergency Medicine
DX: I48.20 Chronic atrial fibrillation, unspecified (principal); I10 Essential (primary) hypertension; J45.909 Unspecified asthma, uncomplicated
CPT/HCPCS: 36415; 71045; 80053; 83735; 84484; 85025; 93005; 93010; 96374; 99284-25; A9270

== ENCOUNTER 2024-11-30 09:28 | Emergency (ER) | payer OTHER ==
[~2024-11-30] VITALS: Ht 188 cm; Wt 215.2 kg
[~2024-11-30 09:28] MED LIST changes: +DILTIAZEM 24HR360 MG PO
[2024-11-30] MEDS ORDERED: NITROGLYCERIN 0.4 MG SUBL SL PRN (09:45)
[2024-11-30 09:49] LABS: BASOPHILS 0.7 % (0.2-1.2); EOSINOPHILS 4.7 % (0.8-7.0); LYMPHOCYTES 16.8 % (21.8-53.1); MCH 28.3 PG (25.7-32.2); MCHC 31.5 g/dL (32.3-36.5); MCV 89.9 fL (79.0-92.2); MONOCYTES 10.2 % (5.3-12.2); NEUTROPHILS 67.1 % (34.0-67.9); RBC 4.94 M/uL (4.63-6.08)
[2024-11-30 10:00] LABS: INR 1.07 (0.80-1.30); PROTIME 13.5 Sec (11.2-14.2)
[2024-11-30 10:07] LABS: ALT (SGPT) 29.0 U/L (14-59); AST (SGOT) 13.0 U/L (15-37); GLOMERULAR FILTRATION RATE,EST 80.0 mL/min (>60); PROTEIN, TOTAL 7.5 g/dL (6.4-8.2); UREA NITROGEN 20.0 mg/dL (7-18)
[2024-11-30] MEDS ORDERED: MIDAZOLAM HCL 2 MG/2 ML VIAL IV ONE (12:30)
[2024-11-30 13:49] VITALS: BP 154/91
--- NOTE | 2024-11-30 20:40 | EKG ---
[facility] [address] [facility] [place] [address] Signed Atrial fibrillation Low voltage QRS Nonspecific ST abnormality Prolonged QT Abnormal ECG When compared with ECG of 23-AUG-2024 14:36, Nonspecific T wave abnormality no longer evident in Anterior leads Confirmed by Susie Torres MD () on 11/30/2024 8:40:37 PM Electronically Signed By: SUSIE TORRES MD 11/30/242039 PATIENT NAME: ANA JERNIGAN Electrocardiogram DATE OF : 75 PHYSICIAN: SUSIE TORRES MD REPORT #: [id number] REPORT IS CONFIDENTIAL AND NOT TO BE RELEASED WITHOUT AUTHORIZATION
== END 2024-11-30 13:49 | disposition home or self-care (01) ==
LOC: ED 09:28
PROVIDERS: Emergency Medicine
DX: R07.9 Chest pain, unspecified (principal); I10 Essential (primary) hypertension; J45.909 Unspecified asthma, uncomplicated; I48.91 Unspecified atrial fibrillation; Z79.899 Other long term (current) drug therapy; Z79.02 Long term (current) use of antithrombotics/antiplatelets
CPT/HCPCS: 36415; 71045; 71260; 80053; 83735; 84484; 85025; 85379; 85610; 93005; 93010; 96374; 99285-25; J2250; Q9967